=== PATIENT | female | born 1985 | race African-American/Black ===

== ENCOUNTER 2017-10-24 15:30 | Emergency (ER) | payer MEDICAID ==
[~2017-10-24] VITALS: Ht 157.5 cm; Wt 73.0 kg
[~2017-10-24 15:30] MED LIST: PRENATAL; ibuprofen; tylenol
[2017-10-24] MEDS ORDERED: TETRACAINE 0.5% OPHTH DROPS 4ML LEFTEYE NR (15:45)
[2017-10-24] MEDS ORDERED: FLUORESCEIN SODIUM 1MG/STRIP OP ONE (15:45)
[2017-10-24 16:50] VITALS: BP 106/57
== END 2017-10-24 16:54 | disposition home or self-care (01) ==
LOC: ER 16:34
DX: H18.822 Corneal disorder due to contact lens, left eye (principal)
CPT/HCPCS: 99283

== ENCOUNTER 2018-09-20 09:38 | Emergency (ER) | payer MEDICAID ==
[~2018-09-20] VITALS: Ht 157.5 cm; Wt 68.0 kg
[2018-09-20 11:41] LABS: BASOPHILS % 0.3 % (0.0-2.0); EOSINOPHILS % 0.8 % (0.0-5.0); HEMATOCRIT. 47.1 % (36.0-48.0); HEMOGLOBIN. 16.1 g/dL (12.0-16.0); LYMPHOCYTES % 8.7 % (20.0-50.0); MEAN CORPUSCULAR HEMOGLOBIN 29.4 pg (28.0-32.0); MEAN CORPUSCULAR VOLUME 86.3 fL (81.0-99.0); MEAN PLATELET VOLUME 8.1 fl (7.4-10.4); MONOCYTES % 3.1 % (2.0-8.0); NEUTROPHILS % 87.1 % (40.0-76.0); PLATELET 278 x1000/uL (130-400); RED BLOOD CELL COUNT 5.45 mill/uL (4.2-5.4); RED CELL DISTRIBUTION WIDTH 12.9 % (11.6-14.6)
[2018-09-20 11:46] LABS: CHLORIDE 107 mEq/L (98-107)
[2018-09-20 11:50] LABS: HCG SCREEN NEGATIVE
[2018-09-20] MEDS ORDERED: KETOROLAC 30MG/ML VIAL ONE (11:52)
[2018-09-20] MEDS ORDERED: KETOROLAC 30MG/ML VIAL IV ONE (12:30)
[2018-09-20 13:19] LABS: CLARITY URINE CLEAR (CLEAR); COLOR URINE YELLOW (YELLOW); KETONES URINE NEGATIVE (NEGATIVE); LEUKOCYTE ESTERASE URINE NEGATIVE (NEGATIVE); NITRITE URINE NEGATIVE (NEGATIVE); OCCULT BLOOD URINE NEGATIVE (NEGATIVE); PROTEIN URINE NEGATIVE (NEGATIVE); SPECIFIC GRAVITY URINE 1.025 (1.005-1.030); UROBILINOGEN URINE 0.2 E.U./dL (0.2-1.0)
[2018-09-20 14:30] VITALS: BP 124/76
== END 2018-09-20 14:30 | disposition home or self-care (01) ==
LOC: ER 09:58
DX: R10.30 Lower abdominal pain, unspecified (principal); Z91.010 Allergy to peanuts
CPT/HCPCS: 36415; 80053; 81003; 81025; 84703; 85025; 87070; 87430; 96374; 99283; J1885

== ENCOUNTER 2021-05-05 06:17 | Emergency (ER) | payer MEDICAID, OTHER ==
[~2021-05-05] VITALS: Ht 157.5 cm; Wt 82.0 kg
[2021-05-05] MEDS ORDERED: ONDANSETRON HCL 4MG/2ML INJ IV STA (06:46)
[2021-05-05] MEDS ORDERED: MECLIZINE 25MG TABLET PO ONE (07:00)
[2021-05-05] MEDS ORDERED: SODIUM CHLORIDE 0.9% 1,000 ML IV ONE (07:00)
[2021-05-05 07:42] LABS: BASOPHILS % 0.5 % (0.0-2.0); EOSINOPHILS % 1.8 % (0.0-5.0); HEMATOCRIT. 43.5 % (36.0-48.0); HEMOGLOBIN. 14.7 g/dL (12.0-16.0); LYMPHOCYTES % 25.5 % (20.0-50.0); MEAN CORPUSCULAR HEMOGLOBIN 29.3 pg (28.0-32.0); MEAN CORPUSCULAR VOLUME 86.6 fL (81.0-99.0); MEAN PLATELET VOLUME 8.6 fl (7.4-10.4); NEUTROPHILS % 67.2 % (40.0-76.0); PLATELET 354 x1000/uL (130-400); RED BLOOD CELL COUNT 5.02 mill/uL (4.2-5.4); RED CELL DISTRIBUTION WIDTH 13.3 % (11.6-14.6)
[2021-05-05 07:47] LABS: CHLORIDE 107 mEq/L (98-107)
[2021-05-05 07:53] LABS: HCG SCREEN NEGATIVE
[2021-05-05] MEDS ORDERED: KETOROLAC 30MG/ML VIAL IV ONE (08:15)
[2021-05-05] MEDS ORDERED: LORAZEPAM 0.5MG TABLET PO ONE (09:00)
[2021-05-05] MEDS ORDERED: IBUP-2029 MT (09:59)
[2021-05-05] MEDS ORDERED: MECL-159 MT (09:59)
[2021-05-05 10:23] VITALS: BP 116/59
== END 2021-05-05 10:28 | disposition home or self-care (01) ==
LOC: ER 06:17
DX: R42 Dizziness and giddiness (principal); R07.89 Other chest pain; Z91.010 Allergy to peanuts
CPT/HCPCS: 36415; 70450; 71045; 80053; 81025; 83880; 84484; 84703; 85025; 93005; 96361; 96374; 96375; 99285; J1885; J2405; J7030; J8597; Z7610